=== PATIENT | male | born 2000 | race African-American/Black ===

== ENCOUNTER 2021-12-29 05:04 | Emergency (ER) | payer SELFPAY ==
[~2021-12-29] VITALS: Ht 182.9 cm; Wt 84.1 kg
[2021-12-29 05:20] VITALS: TEMP 97.7
[2021-12-29] MEDS ORDERED: ZOFRAN ODT4 MG PO (05:57)
[2021-12-29] MEDS ORDERED: PEPCID 20MG TAB20 MG PO (05:57)
[2021-12-29 06:12] VITALS: BP 109/69; PULSE 63
== END 2021-12-29 06:12 | disposition home or self-care (01) ==
LOC: COL.ER 05:04
DX: R11.2 Nausea with vomiting, unspecified (principal); F17.200 Nicotine dependence, unspecified, uncomplicated; Z28.311 Partially vaccinated for COVID-19